=== PATIENT | female | born 1950 | race Caucasian/White ===

== ENCOUNTER 2022-03-25 11:21 | Emergency (ER) | payer MEDICARE ==
[~2022-03-25] VITALS: Ht 167.6 cm; Wt 68.0 kg
[2022-03-25 11:31] VITALS: BP 137/71
[2022-03-25] MEDS ORDERED: ALLERGY RELF10 M3 PO (11:51)
[2022-03-25] MEDS ORDERED: PREDNISONE50 MG PO (11:51)
[2022-03-25 12:01] VITALS: BP 156/74
[2022-03-25 12:31] VITALS: BP 183/81
== END 2022-03-25 12:50 | disposition home or self-care (01) ==
LOC: ED 11:21
DX: L50.0 Allergic urticaria (principal); U07.1 COVID-19; I10 Essential (primary) hypertension